=== PATIENT | male | born 1985 | race Caucasian/White ===

== ENCOUNTER 2024-05-06 17:58 | Emergency (ER) | payer SELFPAY ==
[~2024-05-06] VITALS: Ht 180.3 cm; Wt 148.6 kg
[~2024-05-06 17:58] MED LIST: NO HOME MEDICATIONS; NORCO 325 MG-51 TAB PO
[2024-05-06 18:02] VITALS: TEMP 98.5
[2024-05-06] MEDS ORDERED: NS 1,000 ML IV ONE (18:15)
[2024-05-06] MEDS ORDERED: Metoprolol Tartrate 5 MG/5 ML VIAL IV SCH (18:30)
[2024-05-06 18:43] LABS: BASO # 0.1 K/mm3 (0.0-0.2); BASO % 0.7 % (0.0-2.0); EOS # 0.1 K/mm3 (0.0-0.7); GRAN # 5.3 K/mm3 (1.4-6.5); GRAN % 60.6 % (42.2-75.2); HEMATOCRIT 49.2 % (42.0-52.0); HEMOGLOBIN 17.1 g/dl (13.5-18.0); LYMPH # 2.6 K/mm3 (1.2-3.4); LYMPH % 30.3 % (20.0-51.0); MEAN CELL VOLUME 91 fl (80.0-100.0); MEAN CORPUSCULAR HEMOGLOBIN 32 pg (27-31); MEAN CORPUSCULAR HGB CONC 35 g/dl (33.0-37.0); MEAN PLATELET VOLUME 8.4 fl (7.4-10.4); MONO # 0.6 K/mm3 (0.1-0.6); MONO % 6.6 % (1.7-9.3); PLATELET COUNT 271 K/mm3 (130-400); RED BLOOD COUNT 5.43 M/mm3 (4.20-5.60); REDCELL DISTRIBUTION WIDTH-CV 13.1 % (11.5-14.5)
[2024-05-06 19:04] LABS: ALANINE AMINOTRANSFERASE 107 U/L (0-55); ALBUMIN 4.3 g/dL (3.5-5.0); ALKALINE PHOSPHATASE 105 U/L (40-150); ANION GAP 15 mmol/L (7-16); AST,SGOT 71 U/L (5-34); BILIRUBIN,TOTAL 0.6 mg/dL (0.2-1.2); BLOOD UREA NITROGEN 6 mg/dL (9-21); CALCIUM 9.6 mg/dL (8.4-10.2); CHLORIDE 104 mEq/L (98-107); CREATININE, serum 0.98 mg/dL (0.72-1.25); GLUCOSE 120 mg/dL (70-99); POTASSIUM 3.7 mEq/L (3.5-4.5); SODIUM 142 mEq/L (136-145); TOTAL PROTEIN 7.7 g/dl (6.2-8.1)
[2024-05-06 19:12] LABS: TROPONIN-I < 0.010 ng/mL (0.00-0.033)
[2024-05-06] MEDS ORDERED: ZITHROMAX 250M250 MG PO (19:36)
[2024-05-06] MEDS ORDERED: Azithromycin 250 MG TAB PO ONE (19:45)
[2024-05-06 19:56] VITALS: BP 127/83; PULSE 80
== END 2024-05-06 20:08 | disposition home or self-care (01) ==
LOC: COL.ER 17:58
PROVIDERS: Emergency Medicine
DX: I49.3 Ventricular premature depolarization (principal); J32.9 Chronic sinusitis, unspecified; I10 Essential (primary) hypertension; Z79.899 Other long term (current) drug therapy
CPT/HCPCS: J7030

== ENCOUNTER 2024-05-07 19:09 | Emergency (ER) | payer SELFPAY ==
[~2024-05-07] VITALS: Ht 180.3 cm; Wt 147.3 kg
[~2024-05-07 19:09] MED LIST changes: +ZITHROMAX 250M250 MG PO
[2024-05-07 19:14] VITALS: BP 152/92; PULSE 81; TEMP 98.4
== END 2024-05-07 22:25 | disposition left against medical advice (07) ==
LOC: COL.ER 19:09
DX: R53.81 Other malaise (principal); R63.8 Other symptoms and signs concerning food and fluid intake